=== PATIENT | male | born 1950 | race Caucasian/White ===

== ENCOUNTER 2016-06-01 02:18 | Emergency (ER) | payer MEDICARE, OTHER ==
[~2016-06-01 02:18] MED LIST: AMLODIPINE BESY10 MG PO; APRESOLINE PO; COZAAR PO; ECOTRIN325 MG PO; FISH OIL 1,0001 CAP PO; FISH OIL500 MG PO; HCTZ PO; KENALOG IN ORABA5 GM TOP; METOPROLOL TAR100 MG PO; VITAMIN B122500 MCG PO
== END 2016-06-01 04:15 | disposition home or self-care (01) ==
LOC: SED 02:18
DX: S61.211A Laceration without foreign body of left index finger without damage to nail, initial encounter (principal); I25.10 Atherosclerotic heart disease of native coronary artery without angina pectoris; I10 Essential (primary) hypertension; E78.5 Hyperlipidemia, unspecified; Z88.0 Allergy status to penicillin; Z79.899 Other long term (current) drug therapy; Z23 Encounter for immunization; Z87.891 Personal history of nicotine dependence; X58.XXXA Exposure to other specified factors, initial encounter; Y92.098 Other place in other non-institutional residence as the place of occurrence of the external cause
CPT/HCPCS: 12002; 90471; 90715; 99283

== ENCOUNTER 2016-06-09 10:46 | Emergency (ER) | payer MEDICARE, OTHER | END 2016-06-09 11:02 | disposition home or self-care (01) | LOC: SED 10:46 | DX: Z48.01 Encounter for change or removal of surgical wound dressing (principal); I10 Essential (primary) hypertension; Z88.0 Allergy status to penicillin; Z79.82 Long term (current) use of aspirin; Z79.899 Other long term (current) drug therapy | CPT/HCPCS: 99281 ==

== ENCOUNTER → 2016-11-20 | Outpatient (CLI) | payer MEDICARE, OTHER ==
[2016-11-20 11:12] LABS: CHOLESTEROL 173 mg/dL (0-200); HDL CHOLESTEROL 40 mg/dL (29-75); LDL CHOLESTEROL 106 mg/dL (-130); LDL/HDL RATIO 3 RATIO (0-4); TRIGLYCERIDES 137 mg/dL (10-160)
== END | disposition home or self-care (01) ==
LOC: SLAB 10:04
PROVIDERS: Internal Medicine Cardiovascular Disease
DX: I25.10 Atherosclerotic heart disease of native coronary artery without angina pectoris (principal); E78.5 Hyperlipidemia, unspecified
CPT/HCPCS: 36415; 80061